=== PATIENT | male | born 1965 | race Caucasian/White ===

== ENCOUNTER → 2019-02-16 | Day surgery (SDC) | payer BC ==
[2019-02-11 13:05] VITALS: BMI 24.0
[~2019-02-16] MED LIST: LACTATED RINGERS 1,000 ML IV ONE; LACTATED RINGERS 1,000 ML IV SCH; LIDOCAINE 1% 20 ML VIAL (10MG/ML) FOR IV START INTRADERMA ONE; LIDOCAINE 1% 20 ML VIAL (10MG/ML) FOR IV START INTRADERMA PRN; MIDAZOLAM 2 MG/2 ML VIAL ONE; PROPOFOL 10 MG/ML 20 ML VIAL IV ONE
[2019-02-16 09:13] VITALS: TEMP 97.8
--- NOTE | 2019-02-16 09:48 | P.GSHP ---
History of Present Illness H&P Date: 02/16/19 Chief Complaint: GI bleed This a 54-year-old male referred from Dr. Clifford. Patient with rectal bleeding. He presents today for colonoscopy. Past Medical History Past Medical History: Cancer, Hyperlipidemia, Hypertension, Rheumatoid Arthritis (RA) History of Any Multi-Drug Resistant Organisms: None Reported Past Surgical History: Joint Replacement Additional Past Surgical History / Comment(s): TOTAL RIGHT KNEE, RIGHT ARTHROTOMY , RIGHT KNEE ARTHROSCOPIC , LEFT KNEE ARTHROSCOPIC,DEVIATED SEPUM REPAIR Past Anesthesia/Blood Transfusion Reactions: No Reported Reaction Smoking Status: Former smoker - Past Family History Mother Family Medical History: Cancer Additional Family Medical History / Comment(s): BREAST CANCER, Medications and Allergies Home Medications Medication Instructions Recorded Confirmed Type Aspirin [Adult Low Dose Aspirin EC] 81 mg PO DAILY 02/10/19 02/11/19 History Cyanocobalamin (Vitamin B-12) 2,000 mcg PO DAILY 02/10/19 02/10/19 History [Vitamin B-12] Etanercept [Enbrel] 50 mg SQ Q7DAYS 02/10/19 02/10/19 History Fenofibrate Nanocrystallized 145 mg PO DAILY 02/10/19 02/10/19 History [Fenofibrate] Folic Acid 1 mg PO DAILY 02/10/19 02/10/19 History Hydrocodone/Acetaminophen 1 tab PO QID PRN 02/10/19 02/10/19 History [Hydrocodone-Acetamin 5-300 mg] Lisinopril [Zestril] 10 mg PO DAILY 02/10/19 02/10/19 History Methotrexate/Pf [Rasuvo 20 mg/0.4 20 mg SQ TU 02/10/19 02/11/19 History ml Autoinj] Multivit-Min/Folic/Vit K/Lycop 1 each PO DAILY 02/10/19 02/10/19 History [Men's Multivitamin Tablet] Pyridoxine HCl (Vitamin B6) 100 mg PO DAILY 02/10/19 02/10/19 History [Vitamin B-6] amLODIPine BESYLATE [Norvasc] 5 mg PO DAILY 02/10/19 02/10/19 History Allergies Allergy/AdvReac Type Severity Reaction Status Date / Time No Known Allergies Allergy Verified 02/10/19 13:07 Surgical - Exam Vital Signs Temp Pulse Resp BP Pulse Ox 97.8 F 81 18 140/88 97 09/23/19 09:12 02/16/19 09:12 02/16/19 09:12 02/16/19 09:12 02/16/19 09:12 - General well developed, well nourished, no distress - Eyes PERRL - ENT normal pinna - Neck no masses - Respiratory normal expansion - Cardiovascular Rhythm: regular - Abdomen Abdomen: soft, non tender Assessment and Plan Assessment: GI bleed. We'll perform colonoscopy.
--- NOTE | 2019-02-16 10:00 | P.OP ---
Date of Procedure: 02/16/19 Preoperative Diagnosis: GI bleed Postoperative Diagnosis: External hemorrhoids Procedure(s) Performed: Colonoscopy Anesthesia: MAC Surgeon: Kip Gambino Pathology: none sent Condition: stable Disposition: PACU Description of Procedure: The patient's placed on the endoscopy table in the lateral position. He received IV sedation. Digital rectal exam was performed which revealed a few internal hemorrhoids. The flexible colonoscope was then placed patient anus and passed throughout the entire colon. The ileocecal valve was visualized. The cecum, ascending and transverse colon appeared normal. The descending and sigmoid colon there was a few scattered diverticula. Scope was then brought back the rectum this appeared normal. Scope was withdrawn for patient. There is no evidence of any GI bleed. It is presumed the patient may of blood from hemorrhoids.
[2019-02-16 10:27] VITALS: BP 127/84; PULSE 78; RESP 18
--- NOTE | 2019-02-18 14:43 | CDI ---
Date: 02.18.19 CDS/Attending Urologist Name: Julia Wise Phone: If any questions, call Carol Camara Finance Mgr at [phone] Patient Name: Sushil Chicas Admit Date: 02.16.19 Discharge Date: 02.16.19 ATTENTION: The [facility] Coding Staff appreciate your assistance in clarifying documentation. Please respond to the clarification below the line at the bottom and electronically sign. The [facility] Coding staff will review the response and follow-up if needed. Please note: Queries are made part of the Legal Health Record. If you have any questions, please contact the Finance Mgr. Dear , Postoperative diagnosis states External hemorrhoids on OP report but all the body of the report states is internal hemorrhoids. Please specify where the hemorrhoids are located. external hemorrhoids internal hemorrhoids other hemorrhoids, please specify. Thank you for your kind consideration. Operative note addendum made MTDD
== END ==
LOC: ORWHC2ENDO 08:32
PROVIDERS: ATTEND Surgery
DX: K64.8 Other hemorrhoids (principal); K57.30 Diverticulosis of large intestine without perforation or abscess without bleeding; E78.5 Hyperlipidemia, unspecified; I10 Essential (primary) hypertension; M06.9 Rheumatoid arthritis, unspecified; Z85.9 Personal history of malignant neoplasm, unspecified; Z96.651 Presence of right artificial knee joint; Z87.891 Personal history of nicotine dependence; Z79.82 Long term (current) use of aspirin; Z79.899 Other long term (current) drug therapy; Z80.3 Family history of malignant neoplasm of breast
CPT/HCPCS: 45378; J2250; J2704

== ENCOUNTER → 2020-10-11 | Outpatient (CLI) | payer BC ==
--- NOTE | 2020-10-11 16:17 | US ---
EXAMINATION TYPE: US kidneys/renal and bladder DATE OF EXAM: 10/11/2020 COMPARISON: NONE CLINICAL HISTORY: R31.9 Hematuria. Hematuria EXAM MEASUREMENTS: Right Kidney: 13.2 x 6.4 x 5.2 cm Left Kidney: 12.2 x 6.0 x 5.4 cm Right Kidney: Anechoic area upper pole 2.1 x 2.0 x 1.9 cm. This is most suggestive of a renal cyst. No hydronephrosis or shadowing renal calculi. Left Kidney: Anechoic area lower pole .9 x .8 x 1.2 cm. This is most suggestive of a renal cyst. No hydronephrosis or shadowing renal calculi. Bladder: wnl Bilateral Jets seen: Yes There is no evidence for hydronephrosis at this point in time. No nephrolithiasis is seen. The urina ry bladder is anechoic. Bilateral ureteral jets are seen. IMPRESSION: 1. Bilateral renal cysts. 2. No hydronephrosis or shadowing renal calculi.
== END | disposition home or self-care (01) ==
LOC: RADUSWWP 12:38
PROVIDERS: ATTEND Internal Medicine
DX: N28.1 Cyst of kidney, acquired (principal)
CPT/HCPCS: 76770

== ENCOUNTER 2021-12-10 10:40 | Emergency (ER) | payer BC ==
[2021-12-10 10:58] VITALS: BP 147/97; PULSE 88; RESP 18; TEMP 98.1
--- NOTE | 2021-12-10 11:32 | XR ---
EXAMINATION TYPE: XR KUB DATE OF EXAM: 12/10/2021 COMPARISON: NONE HISTORY: Pain TECHNIQUE: Single supine KUB image of the abdomen is obtained FINDINGS: Small bowel demonstrates no evidence for dilatation or air fluid levels. Gas and fecal material is seen in non-distended colon. No convincing evidence for pneumoperitoneum. No unusual calcifications. The lung bases are clear. The osseous structures are intact. IMPRESSION: 1. Overall nonobstructive bowel gas pattern.
[2021-12-10] MEDS ORDERED: ONDANSETRON 4 MG/2 ML VIAL IVP STA (12:03)
[2021-12-10] MEDS ORDERED: SODIUM CHLORIDE 0.9% 2,000 ML IV STA (12:03)
[2021-12-10] MEDS ORDERED: MORPHINE SULFATE 4 MG/ML SYRINGE IV STA (12:03)
--- NOTE | 2021-12-10 12:27 | CT ---
EXAMINATION TYPE: CT abdomen pelvis wo con DATE OF EXAM: 12/10/2021 COMPARISON: None HISTORY: Rt flank pain CT DLP: 1496.4 mGycm Examination of the solid and hollow viscera is limited given the lack of contrast. FINDINGS: LUNG BASES: No evidence for nodule. No evidence for infiltrate. LIVER/GB: The gallbladder is unremarkable. No space-occupying hepatic lesion. PANCREAS: No pancreatic mass identified. No inflammatory process seen. SPLEEN: No evidence for splenomegaly. No intrasplenic lesions seen. ADRENALS: No adrenal nodules identified. No evidence for thickening. KIDNEYS: No solid evidence for renal mass. Renal cyst right kidney. There is a 2.5 mm calculus residi ng within the dependent portion of the urinary bladder image 135 of 183 which may reflect a recently passed calculus with minimal to mild residual hydronephrosis on the right. BOWEL: Appendix has a normal appearance. No evidence of bowel obstruction. No inflammatory process. Lymph nodes: No evidence for adenopathy greater than 1 cm. Abdominal aorta: Atheromatous changes seen. No evidence for aneurysm. Genital organs: No significant abnormality. Other: Degenerative changes lumbar spine. IMPRESSION: 2.5 mm calculus residing within the dependent portion of the urinary bladder image 135 of 183 which m ay reflect a recently passed calculus with minimal to mild residual hydronephrosis on the right.
[2021-12-10 12:33] LABS: Basophils # (A) 0.1 k/uL (0-0.2); Basophils % (A) 0 %; Eosinophils # (A) 0.1 k/uL (0-0.7); Eosinophils % (A) 1 %; HCT 49.1 % (39.0-53.0); HGB 16.4 gm/dL (13.0-17.5); Lymphocytes # (A) 1.1 k/uL (1.0-4.8); Lymphocytes % (A) 9 %; MCH 31.4 pg (25.0-35.0); MCHC 33.4 g/dL (31.0-37.0); Mean Platelet Volume 7.4; Monocytes # (A) 0.4 k/uL (0-1.0); Monocytes % (A) 3 %; Neutrophils % (A) 86 %; Platelet Count 327 k/uL (150-450); RBC 5.22 m/uL (4.30-5.90); RDW 12.8 % (11.5-15.5); WBC 12.7 k/uL (3.8-10.6)
[2021-12-10 12:36] LABS: Appearance,Urine Clear (Clear); Bilirubin,Urine Negative (Negative); Blood,Urine Large (Negative); Color,Urine Yellow; Glucose,Urine (UA) Negative (Negative); Ketones,Urine Negative (Negative); Leukocyte Esterase,Urine Trace (Negative); Mucus,Urine Rare /hpf; Nitrite,Urine Negative (Negative); Protein,Urine Trace (Negative); RBC,Urine >182 /hpf (0-5); Specific Gravity,Urine 1.011 (1.001-1.035); Urobilinogen,Urine <2.0 mg/dL (<2.0); WBC,Urine 3 /hpf (0-5)
[2021-12-10 12:40] LABS: ALT 40 U/L (4-49); AST 33 U/L (17-59); African American GFR (CKD) >90 (>60 ml/min/1.73 sqM); Albumin 4.6 g/dL (3.5-5.0); Alkaline Phosphatase 59 U/L (38-126); Anion Gap 9 mmol/L; Blood Urea Nitrogen 20 mg/dL (9-20); Carbon Dioxide 26 mmol/L (22-30); Chloride 105 mmol/L (98-107); Glucose 106 mg/dL (74-99); Lipase 126 U/L (23-300); Non-African American GFR(CKD) >90 (>60 ml/min/1.73 sqM); Potassium 4.1 mmol/L (3.5-5.1); Sodium 140 mmol/L (137-145); Total Bilirubin 0.4 mg/dL (0.2-1.3); Total Protein 7.7 g/dL (6.3-8.2)
--- NOTE | 2021-12-10 13:08 | ED ---
Abdominal Pain HPI - General Chief Complaint: Abdominal Pain Stated Complaint: Abd Pain Source: patient Mode of arrival: wheelchair Limitations: no limitations - History of Present Illness Initial Comments: Patient is a 56-year-old male who presents to the emergency department with a chief complaint of right sided pain. Patient states the pain started this morning. Onset was abrupt and severe. Radiation to the right back. Patient had associated nausea and vomiting. Patient states his pain has waxed and waned today. Denies fever, chills, burning with urination, and increased urinary frequency. Does admit to some increased urgency and difficulty starting stream. Denies history of kidney stone and infection. - Related Data Home Medications Medication Instructions Recorded Confirmed Aspirin [Adult Low Dose Aspirin EC] 81 mg PO DAILY 02/10/19 02/11/19 Cyanocobalamin (Vitamin B-12) 2,000 mcg PO DAILY 02/10/19 02/10/19 [Vitamin B-12] Etanercept [Enbrel] 50 mg SQ Q7DAYS 02/10/19 02/10/19 Fenofibrate Nanocrystallized 145 mg PO DAILY 02/10/19 02/10/19 [Fenofibrate] Folic Acid 1 mg PO DAILY 02/10/19 02/10/19 Hydrocodone/Acetaminophen 1 tab PO QID PRN 02/10/19 02/10/19 [Hydrocodone-Acetamin 5-300 mg] Methotrexate/Pf [Rasuvo 20 mg/0.4 20 mg SQ TU 02/10/19 02/11/19 ml Autoinj] Multivit-Min/Folic/Vit K/Lycop 1 each PO DAILY 02/10/19 02/10/19 [Men's Multivitamin Tablet] Pyridoxine HCl (Vitamin B6) 100 mg PO DAILY 02/10/19 02/10/19 [Vitamin B-6] amLODIPine BESYLATE [Norvasc] 5 mg PO DAILY 02/10/19 02/10/19 lisinopriL [Zestril] 10 mg PO DAILY 02/10/19 02/10/19 Previous Rx's Medication Instructions Recorded Ondansetron Odt [Zofran Odt] 4 mg PO Q8HR PRN #10 tab 12/10/21 Tamsulosin [Flomax] 0.4 mg PO DAILY #14 cap 12/10/21 Allergies Allergy/AdvReac Type Severity Reaction Status Date / Time No Known Allergies Allergy Verified 12/10/21 10:58 Review of Systems ROS Statement: Those systems with pertinent positive or pertinent negative responses have been documented in the HPI. ROS Other: All systems not noted in ROS Statement are negative. Past Medical History Past Medical History: Cancer, Hyperlipidemia, Hypertension, Rheumatoid Arthritis (RA) History of Any Multi-Drug Resistant Organisms: None Reported Past Surgical History: Joint Replacement Additional Past Surgical History / Comment(s): TOTAL RIGHT KNEE, RIGHT ARTH ROTOMY , RIGHT KNEE ARTHROSCOPIC , LEFT KNEE ARTHROSCOPIC,DEVIATED SEPUM REPAIR Past Anesthesia/Blood Transfusion Reactions: No Reported Reaction Past Psychological History: No Psychological Hx Reported Past Alcohol Use History: Rare Past Drug Use History: Marijuana - Past Family History Mother Family Medical History: Cancer Additional Family Medical History / Comment(s): BREAST CANCER, General Exam Limitations: no limitations General appearance: alert, in no apparent distress Eye exam: Present: normal appearance, PERRL, EOMI. Absent: scleral icterus, conjunctival injection, periorbital swelling Respiratory exam: Present: normal lung sounds bilaterally. Absent: respiratory distress, wheezes, rales, rhonchi, stridor Cardiovascular Exam: Present: regular rate, normal rhythm, normal heart sounds. Absent: systolic murmur, diastolic murmur, rubs, gallop, clicks GI/Abdominal exam: Present: soft, normal bowel sounds. Absent: distended, tenderness, guarding, rebound, rigid Back exam: Present: normal inspection, full ROM. Absent: tenderness, CVA tenderness (R), CVA tenderness (L) Neurological exam: Present: alert, oriented X3, CN II-XII intact Psychiatric exam: Present: normal affect, normal mood Skin exam: Present: warm, dry, intact, normal color. Absent: rash Course Vital Signs 12/10/21 10:54 Temperature 98.1 F Pulse Rate 88 Respiratory 18 Rate Blood Pressure 147/97 O2 Sat by Pulse 97 Oximetry Medical Decision Making - Medical Decision Making This is a 56-year-old male who presents with right flank pain, nausea, vomiting. Thorough history and examination were performed. Patient is well-appearing. Afebrile. There is no right CVA tenderness or right lumbar tenderness. With suspicion for kidney stone I will obtain laboratory studies as well as CT of the abdomen and pelvis without contrast. Laboratory studies are significant for mild leukocytosis at 12.7. Kidney function is normal. Urinalysis reveals large blood without evidence of infection. CT of the abdomen and pelvis shows a 2.5 mm calculus residing with independent portion of the urinary bladder which may reflect a recently passed calculus with minimal to mild residual hydronephrosis on the right. Results discussed with patient and his . This is a small kidney stone with good kidney function and minimal hydronephrosis. Patient can pass the stone at home. He will be discharged with Flomax and Zofran. Patient given a strainer to catch the stone which she will bring to urology follow-up. Return parameters discussed. Patient and his verbalize understanding and are agreeable to this plan. Dr. Joy is my attending. - Lab Data Result diagrams: 12/10/21 12:29 12/10/21 12:29 Lab Results 12/10/21 12/10/21 12/10/21 Range/Units 12:29 12:29 12:29 WBC 12.7 H (3.8-10.6) k/uL RBC 5.22 (4.30-5.90) m/uL Hgb 16.4 (13.0-17.5) gm/dL Hct 49.1 (39.0-53.0) % MCV 94.0 (80.0-100.0) fL MCH 31.4 (25.0-35.0) pg MCHC 33.4 (31.0-37.0) g/dL RDW 12.8 (11.5-15.5) % Plt Count 327 (150-450) k/uL MPV 7.4 Neutrophils % 86 % Lymphocytes % 9 % Monocytes % 3 % Eosinophils % 1 % Basophils % 0 % Neutrophils # 11.0 H (1.3-7.7) k/uL Lymphocytes # 1.1 (1.0-4.8) k/uL Monocytes # 0.4 (0-1.0) k/uL Eosinophils # 0.1 (0-0.7) k/uL Basophils # 0.1 (0-0.2) k/uL Sodium 140 (137-145) mmol/L Potassium 4.1 (3.5-5.1) mmol/L Chloride 105 (98-107) mmol/L Carbon Dioxide 26 (22-30) mmol/L Anion Gap 9 mmol/L BUN 20 (9-20) mg/dL Creatinine 0.63 L (0.66-1.25) mg/dL Est GFR (CKD-EPI)AfAm >90 (>60 ml/min/1.73 sqM) Est GFR (CKD-EPI)NonAf >90 (>60 ml/min/1.73 sqM) Glucose 106 H (74-99) mg/dL Calcium 10.0 (8.4-10.2) mg/dL Total Bilirubin 0.4 (0.2-1.3) mg/dL AST 33 (17-59) U/L ALT 40 (4-49) U/L Alkaline Phosphatase 59 (38-126) U/L Total Protein 7.7 (6.3-8.2) g/dL Albumin 4.6 (3.5-5.0) g/dL Lipase 126 (23-300) U/L Urine Color Yellow Urine Appearance Clear (Clear) Urine pH 5.0 (5.0-8.0) Ur Specific Melvin 1.011 (1.001-1.035) Urine Protein Trace H (Negative) Urine Glucose (UA) Negative (Negative) Urine Ketones Negative (Negative) Urine Blood Large H (Negative) Urine Nitrite Negative (Negative) Urine Bilirubin Negative (Negative) Urine Urobilinogen <2.0 (<2.0) mg/dL Ur Leukocyte Esterase Trace H (Negative) Urine RBC >182 H (0-5) /hpf Urine WBC 3 (0-5) /hpf Urine Mucus Rare H (None) /hpf Disposition Clinical Impression: Kidney stone on right side Disposition: HOME SELF-CARE Condition: Good Instructions (If sedation given, give patient instructions): Kidney Stones ( ED), How to Strain Your Urine (ED) Additional Instructions: Please take medication as directed. Take your home prescription of Vicodin for pain. Strain urine in effort to catch stone so it can be tested at urology clinic. Follow-up with urologist in 1-2 days. Return to the emergency department if you experience new, concerning, or worsening symptoms. Prescriptions: Tamsulosin [Flomax] 0.4 mg PO DAILY #14 cap Ondansetron Odt [Zofran Odt] 4 mg PO Q8HR PRN #10 tab PRN Reason: Nausea Is patient prescribed a controlled substance at d/c from ED?: No Referrals: Angy Clifford MD [Primary Care Provider] - 1-2 days Oren Mccarthy MD [STAFF PHYSICIAN] - 1-2 days Time of Disposition: 13:08
== END 2021-12-10 13:24 | disposition home or self-care (01) ==
LOC: EC 10:40
DX: N20.0 Calculus of kidney (principal); E78.5 Hyperlipidemia, unspecified; I10 Essential (primary) hypertension
CPT/HCPCS: 99284; 96374; 96361; 36415; 80053; 83690; 85025; 81001; 74018; 74176; 96375; J2270; J2405

== ENCOUNTER 2022-03-26 12:44 | Emergency (ER) | payer BC ==
[2022-03-26] MEDS ORDERED: LIDOCAINE 5% PATCH TOPICAL STA (15:24)
[2022-03-26] MEDS ORDERED: KETOROLAC 15 MG/ML 1 ML VIAL IM STA (15:25)
--- NOTE | 2022-03-26 16:10 | ED ---
General Adult HPI - General Chief complaint: Back Pain/Injury Stated complaint: fall, back injury Time Seen by Provider: 03/26/22 15:11 Source: patient, RN notes reviewed, old records reviewed Mode of arrival: ambulatory Limitations: no limitations - History of Present Illness Initial comments: Patient is a 57-year-old male with past medical history remarkable for chronic pain, hypertension, rheumatoid arthritis who presents emergency Department after [place] injuring his back on Saturday. Is currently Saturday morning. Patient states he fell out of his shed approximately 6 inches and landed on the renal areas. Has a small abrasion located to the posterior left back. Also has diffuse pain over the ribs on his back. Is concerned he may have a rib injury. Worse with deep inspiration. Denies cough. Denies fevers or chills. Denies abdominal pain, nausea, vomiting. Denies any midline back pain. Is not on blood thinners. Did not lose conscious. Presents for further evaluation at this time. - Related Data Home Medications Medication Instructions Recorded Confirmed Aspirin [Adult Low Dose Aspirin EC] 81 mg PO DAILY 02/10/19 02/11/19 Cyanocobalamin (Vitamin B-12) 2,000 mcg PO DAILY 02/10/19 02/10/19 [Vitamin B-12] Etanercept [Enbrel] 50 mg SQ Q7DAYS 02/10/19 02/10/19 Fenofibrate Nanocrystallized 145 mg PO DAILY 02/10/19 02/10/19 [Fenofibrate] Folic Acid 1 mg PO DAILY 02/10/19 02/10/19 Hydrocodone/Acetaminophen 1 tab PO QID PRN 02/10/19 02/10/19 [Hydrocodone-Acetamin 5-300 mg] Methotrexate/Pf [Rasuvo 20 mg/0.4 20 mg SQ TU 02/10/19 02/11/19 ml Autoinj] Multivit-Min/Folic/Vit K/Lycop 1 each PO DAILY 02/10/19 02/10/19 [Men's Multivitamin Tablet] Pyridoxine HCl (Vitamin B6) 100 mg PO DAILY 02/10/19 02/10/19 [Vitamin B-6] amLODIPine BESYLATE [Norvasc] 5 mg PO DAILY 02/10/19 02/10/19 lisinopriL [Zestril] 10 mg PO DAILY 02/10/19 02/10/19 Previous Rx's Medication Instructions Recorded Ondansetron Odt [Zofran Odt] 4 mg PO Q8HR PRN #10 tab 12/10/21 Tamsulosin [Flomax] 0.4 mg PO DAILY #14 cap 12/10/21 Lidocaine 5% Patch [Lidoderm 5% 1 patch TOPICAL DAILY PRN 7 Days 03/26/22 Patch] #7 patch methocarbamoL [Robaxin-750] 750 mg PO BID PRN #14 tab 03/26/22 Allergies Allergy/AdvReac Type Severity Reaction Status Date / Time No Known Allergies Allergy Verified 03/26/22 12:58 Review of Systems ROS Statement: Those systems with pertinent positive or pertinent negative responses have been documented in the HPI. Review of Systems: CONST: Denies fever EYES: Denies blurry vision ENT: Denies nasal congestion C/V: Denies Chest pain RESP: Denies shortness of breath GI: Denies abdominal pain : Denies dysuria SKIN: Endorses abrasion MSK: Endorses back pain NEURO: Denies headache ROS Other: All systems not noted in ROS Statement are negative. Past Medical History Past Medical History: Cancer, Hyperlipidemia, Hypertension, Rheumatoid Arthritis (RA) History of Any Multi-Drug Resistant Organisms: None Reported Past Surgical History: Joint Replacement Additional Past Surgical History / Comment(s): TOTAL RIGHT KNEE, RIGHT ARTHROTOMY , RIGHT KNEE ARTHROSCOPIC , LEFT KNEE ARTHROSCOPIC,DEVIATED SEPUM REPAIR Past Anesthesia/Blood Transfusion Reactions: No Reported Reaction Past Psychological History: No Psychological Hx Reported Smoking Status: Never smoker Past Alcohol Use History: Rare Past Drug Use History: Marijuana - Past Family History Mother Family Medical History: Cancer Additional Family Medical History / Comment(s): BREAST CANCER, General Exam - General Exam Comments Initial Comments: General: Appears in no acute distress. HEAD: Normal with no signs of head trauma. EYES: EOMI ENT: Hearing grossly intact, normal oropharynx. RESPIRATORY: Clear breath sounds bilaterally. No wheezes, rales, or rhonchi. No hypoxia. No respiratory distress. C/V: Regular rate and rhythm. S1 and S2 auscultated. ABD: Abdomen is soft, nondistended. Nontender. EXT: Posterior left rib pain and trapezius muscle pain. No obvious step-offs appreciated. No midline cervical, thoracic, lumbar spine tenderness to palpation. SKIN: Small abrasion located over the posterior left back. Approximately the size of a dime. Does not appear to be penetrating. NEURO: Alert and Oriented 4. Limitations: no limitations Course Vital Signs 03/26/22 12:56 Temperature 98 F Pulse Rate 101 H Respiratory 20 Rate Blood Pressure 142/97 O2 Sat by Pulse 98 Oximetry Medical Decision Making - Medical Decision Making Based on the patient's presentation and physical exam, and concern for rib pain/rib injury or back injury. His no midline spine tenderness. Is up-to-date on tetanus. Has a small abrasion. We will obtain left rib x-ray with chest tube ribs and lung. He was in agreement this plan. Vital signs within acceptable limits. No respiratory distress. Disposition Clinical Impression: Rib contusion, Abrasion Disposition: HOME SELF-CARE Condition: Good Instructions (If sedation given, give patient instructions): How to Use an Incentive Spirometer (ED), Rib Contusion (ED) Prescriptions: Lidocaine 5% Patch [Lidoderm 5% Patch] 1 patch TOPICAL DAILY PRN 7 Days #7 patch PRN Reason: Pain methocarbamoL [Robaxin-750] 750 mg PO BID PRN #14 tab PRN Reason: Pain Is patient prescribed a controlled substance at d/c from ED?: No Referrals: Angy Clifford MD [Primary Care Provider] - 1-2 days Time of Disposition: 16:20
--- NOTE | 2022-03-26 16:25 | XR ---
EXAMINATION TYPE: PA chest and left rib series, 5 views DATE OF EXAM: 03/26/2022 Comparison: None Clinical History: 57-year-old male rib pain Findings: Heart normal size. Aorta and pulmonary vasculature are within normal limits. No consolidation, pneumo thorax, or pleural effusion. Mild to moderate degenerative change left AC joint. No displaced left rib fracture seen. Impression: No acute cardiopulmonary process. No displaced left fracture seen.
[2022-03-26 16:45] VITALS: BP 163/99; PULSE 89; RESP 18; TEMP 97.2
== END 2022-03-26 16:45 | disposition home or self-care (01) ==
LOC: EC 12:44
DX: S20.20XA Contusion of thorax, unspecified, initial encounter (principal); E78.5 Hyperlipidemia, unspecified; I10 Essential (primary) hypertension; Z79.899 Other long term (current) drug therapy; Z79.82 Long term (current) use of aspirin; W17.89XA Other fall from one level to another, initial encounter; Y92.89 Other specified places as the place of occurrence of the external cause
CPT/HCPCS: 99283

== ENCOUNTER → 2024-06-18 | Outpatient (CLI) | payer BC ==
--- NOTE | 2024-06-18 16:44 | CA ---
Transthoracic Echo Report Name: Sushil Chicas Age: 59 Gender: M : 1965 Exam Date: 06/18/2024 14:15 Exam Location: [facility] Ht (in): 69 Wt (lb): 261 Ordering Physician: Izaiah Cronin DO Attending/Referring Phys: Willis Real FNC Hotbed Operator Judy Barth RDCS Procedure CPT: Indications: Z01.818 ENCTR FOR PRE PROCEDURAL EXAM Cardiac Hx: Technical Quality: Fair Contrast 1: Total Dose (mL): Contrast 2: Total Dose (mL): MEASUREMENTS (Male / Female) Normal Values 2D ECHO LV Diastolic Diameter PLAX 5.1 cm 4.2 - 5.9 / 3.9 - 5.3 cm LV Systolic Diameter PLAX 3.6 cm IVS Diastolic Thickness 1.3 cm 0.6 - 1.0 / 0.6 - 0.9 cm LVPW Diastolic Thickness 1.2 cm 0.6 - 1.0 / 0.6 - 0.9 cm LV Relative Wall Thickness 0.5 RV Internal Dim ED PLAX 3.6 cm LA Systolic Diameter LX 4.2 cm 3.0 - 4.0 / 2.7 - 3.8 cm LV Diastolic Volume MOD BP 110.9 cm??? 67 - 155 / 56 - 104 cm??? LV Systolic Volume MOD BP 63.0 cm??? 22 - 58 / 19 - 49 cm??? LV Ejection Fraction MOD BP 43.2 % >= 55 % LV Cardiac Index MOD BP 1642.4 cm???/min???m??? LV Diastolic Volume MOD 4C 119.4 cm??? LV Systolic Volume MOD 4C 57.4 cm??? LV Ejection Fraction MOD 4C 51.9 % LV Cardiac Index MOD 4C 2123.3 cm???/min???m??? LV Diastolic Length 4C 8.9 cm LV Systolic Length 4C 7.9 cm LV Diastolic Volume MOD 2C 100.8 cm??? LV Systolic Volume MOD 2C 66.5 cm??? LV Ejection Fraction MOD 2C 34.0 % LV Cardiac Index MOD 2C 1175.5 cm???/min???m??? LV Diastolic Length 2C 9.1 cm LV Systolic Length 2C 7.3 cm LA Volume 48.2 cm??? 18 - 58 / 22 - 52 cm??? LA Volume Index 19.7 cm???/m??? 16 - 28 cm???/m??? M-MODE Aortic Root Diameter MM 4.0 cm DOPPLER AV Peak Velocity 141.6 cm/s AV Peak Gradient 8.0 mmHg AI Peak Velocity 280.9 cm/s AI Peak Gradient 31.6 mmHg AI Pressure Half Time 1331.8 ms MV Area PHT 2.7 cm??? Mitral E Point Velocity 70.2 cm/s Mitral A Point Velocity 98.3 cm/s Mitral E to A Ratio 0.7 MV Deceleration Time 281.0 ms TR Peak Velocity 209.7 cm/s TR Peak Gradient 17.6 mmHg Right Ventricular Systolic Press 22.6 mmHg FINDINGS Left Ventricle Left ventricular ejection fraction is estimated at 55 %. Left ventricular cavity size normal. Mild concentric left ventricular hypertrophy. Normal left ventricular wall motion. Right Ventricle Mild right ventricular dilatation. Right ventricular systolic pressure within normal limits. Right Atrium Normal right atrial size. No right atrial thrombus or mass seen. Left Atrium Normal left atrial size. No left atrial thrombus or mass present. Mitral Valve Structurally normal mitral valve. No mitral stenosis, regurgitation or prolapse. Aortic Valve Trileaflet aortic valve. Trace to mild aortic regurgitation. No aortic stenosis. Tricuspid Valve Structurally normal tricuspid valve. Trace to mild tricuspid regurgitation. Pulmonic Valve Structurally normal pulmonic valve. Trace pulmonic regurgitation. Pericardium No pericardial effusion. Aorta Moderate aortic dilatation at the level of the sinuses of valsalva 40 mm CONCLUSIONS Left ventricular ejection fraction 55% Mildly increased left ventricular wall thickness RVSP 22 No mitral regurgitation Trace to mild tricuspid regurgitation Previewed by: Dr. Deondre Gregorio DO (Electronically Signed) Final Date: 18 June 2024 16:43
== END | disposition home or self-care (01) ==
LOC: RADECHMAIN 14:13
PROVIDERS: ATTEND Family Medicine
DX: Z01.818 Encounter for other preprocedural examination (principal); I36.1 Nonrheumatic tricuspid (valve) insufficiency
CPT/HCPCS: 93306

== ENCOUNTER → 2024-07-24 | Outpatient (CLI) | payer BC ==
--- NOTE | 2024-07-24 16:43 | US ---
EXAMINATION TYPE: US venous doppler duplex LE LT DATE OF EXAM: 07/24/2024 4:09 PM COMPARISON: NONE CLINICAL INDICATION: Male, 59 years old with history of LEFT LEG R22.42 LOCALIZED SWELLING, MASS AND LUMP; recent total knee 06/30/2024, swelling and knee pain TECHNIQUE: The lower extremity deep venous system is examined utilizing real time linear array sonog lynn with graded compression, color doppler sonography, and spectral doppler. SIDE PERFORMED: Left FINDINGS: VESSELS IMAGED: Common Femoral Vein Deep Femoral Vein Greater Saphenous Vein * Femoral Vein Popliteal Vein Small Saphenous Vein * Proximal Calf Veins (* superficial vessels) limited views due to pain and habitus Left Leg: Negative for DVT, Color Doppler imaging shows patency of the vessels. Spectral waveforms a re within normal limits. There is a complex lesion with peripheral color flow within the left popliteal fossa measuring 4.9 x 1.4 cm. There is some internal color flow suggested. IMPRESSION: 1. No evidence of deep vein thrombosis of the left lower extremity. 2. Complex lesion within the left popliteal fossa with some internal color flow suggested. Etiologies include complex Zuniga's cyst versus other. Recommend further evaluation with MRI. [facility], , 07/24/2024 4:41 PM
== END | disposition home or self-care (01) ==
LOC: RADUSWWP 14:58
PROVIDERS: ATTEND Family Medicine
DX: R22.42 Localized swelling, mass and lump, left lower limb (principal)

== ENCOUNTER 2024-09-02 08:29 | Day surgery (SDC) | payer BC ==
[2024-08-31 15:48] VITALS: BMI 39.9
--- NOTE | 2024-09-02 07:58 | P.GSHP ---
History of Present Illness H&P Date: 09/02/24 CHIEF COMPLAINT: GERD and colon screen HISTORY OF PRESENT ILLNESS: The patient is a 59-year-old male who presents with gastroesophageal reflux disease and need for colon screen. Upper and lower endoscopy were offered for further evaluation and management. PAST MEDICAL HISTORY: Please see list. PAST SURGICAL HISTORY: Please see list. MEDICATIONS: Please see list. ALLERGIES: Please see list. SOCIAL HISTORY: No illicit drug use FAMILY HISTORY: No reports of Crohn disease or ulcerative colitis. REVIEW OF ORGAN SYSTEMS: CONSTITUTIONAL: No reports of fevers or chills. GI: Denies any blood in stools or constipation. PHYSICAL EXAM: VITAL SIGNS: Stable GENERAL: Well-developed pleasant in no acute distress. HEENT: No scleral icterus. Extraocular movements grossly intact. Moist buccal mucosa. NECK: Supple without lymphadenopathy. CHEST: Unlabored respirations. Equal bilateral excursions. CARDIOVASCULAR: Regular rate and rhythm. Distal 2+ pulses. ABDOMEN: Soft, nondistended. MUSCULOSKELETAL: No clubbing, cyanosis, or edema. ASSESSMENT: 1. Gastroesophageal reflux disease 2. Colon screen. PLAN: 1. Recommend proceeding with an upper and lower endoscopy Past Medical History Past Medical History: Hyperlipidemia, Hypertension, Osteoarthritis (OA), Rheumatoid Arthritis (RA) History of Any Multi-Drug Resistant Organisms: None Reported Past Surgical History: Joint Replacement Additional Past Surgical History / Comment(s): TOTAL RIGHT KNEE, RIGHT ARTHROTOMY , RIGHT KNEE ARTHROSCOPIC , LEFT KNEE ARTHROSCOPIC, DEVIATED SEPUM REPAIR, L total knee. Past Anesthesia/Blood Transfusion Reactions: No Reported Reaction Smoking Status: Former smoker, Never smoker - Past Family History Mother Family Medical History: Cancer Additional Family Medical History / Comment(s): BREAST CANCER, Medications and Allergies Home Medications Medication Instructions Recorded Confirmed Type Cyanocobalamin (Vitamin B-12) 2,000 mcg PO DAILY 02/10/19 08/31/24 History [Vitamin B-12] Fenofibrate Nanocrystallized 145 mg PO DAILY 02/10/19 08/31/24 History [Fenofibrate] Hydrocodone/Acetaminophen 1 tab PO QID PRN 02/10/19 08/31/24 History [Hydrocodone-Acetamin 5-300 mg] Multivit-Min/Folic/Vit K/Lycop 1 each PO DAILY 02/10/19 08/31/24 History [Men's Multivitamin Tablet] Pyridoxine HCl (Vitamin B6) 100 mg PO DAILY 02/10/19 08/31/24 History [Vitamin B-6] amLODIPine BESYLATE [Norvasc] 5 mg PO DAILY 02/10/19 08/31/24 History lisinopriL [Zestril] 10 mg PO DAILY 02/10/19 08/31/24 History Diclofenac Sodium [Voltaren 20 gm TOPICAL DAILY 08/31/24 08/31/24 History Arthritis Pain 1% Gel] Upadacitinib [Rinvoq] 15 mg PO DAILY 08/31/24 08/31/24 History sulfaSALAzine [Azulfidine] 500 mg PO BID 08/31/24 08/31/24 History Allergies Allergy/AdvReac Type Severity Reaction Status Date / Time No Known Allergies Allergy Verified 08/31/24 15:48
[~2024-09-02 08:29] MED LIST changes: -LACTATED RINGERS 1,000 ML IV ONE; -LACTATED RINGERS 1,000 ML IV SCH; +LIDOCAINE 1% (10MG/ML) FOR IV START INTRADERMA PRN; -LIDOCAINE 1% 20 ML VIAL (10MG/ML) FOR IV START INTRADERMA ONE; -LIDOCAINE 1% 20 ML VIAL (10MG/ML) FOR IV START INTRADERMA PRN; -MIDAZOLAM 2 MG/2 ML VIAL ONE; -PROPOFOL 10 MG/ML 20 ML VIAL IV ONE
[2024-09-02 08:50] VITALS: TEMP 97.2
[2024-09-02] MEDS: LACTATED RINGERS 1,000 ML IV SCH (09:00)
[2024-09-02] MEDS: IV FLUID CONTINUATION 1,000 ML IV ONE (09:01)
[2024-09-02] MEDS ORDERED: LIDOCAINE 1% INJ 10MG/ML (20 ML MDV) ONE (09:13)
[2024-09-02] MEDS ORDERED: PROPOFOL 10 MG/ML 20 ML VIAL IV ONE (09:13)
--- NOTE | 2024-09-02 09:31 | P.PCN ---
Date of Procedure: 09/02/24 Description of Procedure: PREOPERATIVE DIAGNOSIS: Gastrointestinal bleeding POSTOPERATIVE DIAGNOSIS: Acute gastric ulcer without bleeding Gastroesophageal reflux disease with erosive esophagitis OPERATION: Esophagogastroduodenoscopy with cold forceps biopsies along esophagus, antrum and duodenum SURGEON: Alexandra Marrero MD ANESTHESIA: MAC. INDICATIONS: The patient is a 59-year-old male who presents with gastrointestinal bleeding. Benefits and risks of the procedure were described. Informed consent was obtained. DESCRIPTION: The patient was brought into the endoscopy suite and laid in the left lateral decubitus position. An Olympus gastroscope was passed along the posterior oropharynx down to the distal esophagus where the squamocolumnar junction was encountered at 40 cm from the incisors. The stomach was entered and no bile reflux was found. Additional findings are listed below. Biopsies with cold forceps were obtained of the antrum. The first through third portion of the duodenum was examined. Retroflexion of the scope confirmed Hill grade 2 lower esophageal valve. The squamocolumnar junction demonstrated LA grade B erosive esophagitis. The stomach was desufflated. The patient tolerated the procedure well. FINDINGS: Squamocolumnar junction 40 cm from the incisors. Diaphragmatic hiatus at 40 cm. Hill grade 4 lower esophageal valve. LA grade B erosive esophagitis. Biopsies obtained. Biopsies obtained of the duodenum. Chronic gastritis with biopsies obtained. Acute ulcer, 3 mm at antrum, biopsy obtained RECOMMENDATIONS: Omeprazole 40 mg daily for 2 weeks
--- NOTE | 2024-09-02 09:59 | P.PCN ---
Date of Procedure: 09/02/24 Description of Procedure: PREOPERATIVE DIAGNOSIS: Positive Cologuard Colonoscopy screening POSTOPERATIVE DIAGNOSIS: Tubular adenoma transverse colon OPERATION: Colonoscopy to the ileocecal valve and appendiceal orifice, cecum Colonoscopy with hot snare polypectomy SURGEON: Alexandra Marrero MD. ANESTHESIA: MAC. INDICATIONS: The patient is an 59-year-old male who presents for his first colonoscopy screening. He has positive Cologuard test. Benefits and risks were described and informed consent was obtained. DESCRIPTION OF PROCEDURE: The patient had undergone Suprep. The patient had been brought into the operating room and laid in the left lateral decubitus position. After adequate intravenous sedation, the rectum was examined with 2% lidocaine jelly. The prostate was unremarkable. External hemorrhoids were encountered. The rectal tone was within normal limits. No lesions were palpated in the rectal vault. An Olympus colonoscope was advanced until the cecum, ileocecal valve and appendiceal orifice were clearly viewed. The prep was good. No large sigmoid diverticulosis was encountered. Colonic polyps were found and removed. No evidence of focal colitis was found. Retroflexion of the scope demonstrated grade 2 internal hemorrhoids without active bleeding or inflammation. The colon was desufflated. The patient had tolerated the procedure well. Withdrawal time was over 6 minutes. FINDINGS: Aronchick preparation quality scale 2 (1-5) Internal hemorrhoids, grade 2 External hemorrhoids, grade 2. No arteriovenous malformations. No large sigmoid diverticulosis Removal of 2 polyps: - Snare polypectomy transverse colon x 2, 5 - 8 mm tubulovillous adenoma No focal colitis. RECOMMENDATIONS: Repeat colonoscopy 3 years, 2027 Plan - Discharge Summary Discharge Rx Participant: Yes New Discharge Prescriptions: New Omeprazole [PriLOSEC] 40 mg PO DAILY #14 cap Continue Hydrocodone/Acetaminophen [Vicodin 5-300 mg] 1 tab PO QID PRN PRN Reason: Pain lisinopriL [Zestril] 10 mg PO DAILY amLODIPine BESYLATE [Norvasc] 5 mg PO DAILY Multivit-Min/Folic/Vit K/Lycop [Men's Multivitamin Tablet] 1 each PO DAILY Fenofibrate Nanocrystallized [Fenofibrate] 145 mg PO DAILY Cyanocobalamin (Vitamin B-12) [Vitamin B-12] 2,000 mcg PO DAILY Diclofenac Sodium [Voltaren Arthritis Pain 1% Gel] 20 gm TOPICAL DAILY sulfaSALAzine [Azulfidine] 500 mg PO BID Upadacitinib [Rinvoq] 15 mg PO DAILY Discharge Medication List Cyanocobalamin (Vitamin B-12) [Vitamin B-12] 2,000 mcg PO DAILY 02/10/19 [History] Fenofibrate Nanocrystallized [Fenofibrate] 145 mg PO DAILY 02/10/19 [History] Hydrocodone/Acetaminophen [Vicodin 5-300 mg] 1 tab PO QID PRN 02/10/19 [History] Multivit-Min/Folic/Vit K/Lycop [Men's Multivitamin Tablet] 1 each PO DAILY 0 02/10/19 [History] amLODIPine BESYLATE [Norvasc] 5 mg PO DAILY 02/10/19 [History] lisinopriL [Zestril] 10 mg PO DAILY 02/10/19 [History] Diclofenac Sodium [Voltaren Arthritis Pain 1% Gel] 20 gm TOPICAL DAILY 08/31/24 [History] Upadacitinib [Rinvoq] 15 mg PO DAILY 08/31/24 [History] sulfaSALAzine [Azulfidine] 500 mg PO BID 08/31/24 [History] Omeprazole [PriLOSEC] 40 mg PO DAILY #14 cap 09/02/24 [Rx] Follow up Appointment(s)/Referral(s): Alexandra Marrero MD [STAFF PHYSICIAN] - 09/22/24 1:00 pm Patient Instructions/Handouts: Colorectal Polyps (GEN), Peptic Ulcer (DC) Activity/Diet/Wound Care/Special Instructions: Repeat colonoscopy 3 years, 2027 Discharge Disposition: HOME SELF-CARE
[2024-09-02 10:17] VITALS: BP 119/88; PULSE 97; RESP 20
== END 2024-09-02 11:03 | disposition home or self-care (01) ==
LOC: ORWHC2ENDO 08:29
PROVIDERS: ATTEND Surgery Plastic and Reconstructive Surgery
DX: Z12.11 Encounter for screening for malignant neoplasm of colon (principal); K29.50 Unspecified chronic gastritis without bleeding; D12.3 Benign neoplasm of transverse colon; K64.4 Residual hemorrhoidal skin tags; K64.8 Other hemorrhoids; K25.0 Acute gastric ulcer with hemorrhage; K21.00 Gastro-esophageal reflux disease with esophagitis, without bleeding; E78.5 Hyperlipidemia, unspecified; I10 Essential (primary) hypertension; M06.9 Rheumatoid arthritis, unspecified; Z87.891 Personal history of nicotine dependence
CPT/HCPCS: 45385; 43239; J2003; J2704; 88305

== ENCOUNTER 2024-12-15 19:33 | Outpatient (CLI) | payer BC ==
--- NOTE | 2024-12-17 16:50 | P.PCN ---
Description of Procedure: POLYSOMNOGRAPHY REPORT PROCEDURE(S)/DATE(S): Polysomnography 12/15/2024 CLINICAL: Patient has been seen in the sleep center for evaluation of obstructive sleep apnea-hypopnea syndrome. Please see my consultation. Sleep study has been done for evaluation of patient breathing during the sleep. PROCEDURE: The standard montage for clinical polysomnography included the electroencephalogram, the electrooculogram, the mentalis surface electromyography and Lead II cardiography. The respiratory battery consisted of measurements of nasal/buccal air flow, pressure transducer measurements from nose, thoracic and/or abdominal effort and intercostal surface electromyography. Video monitoring has been done to check for any parasomnia events. Nocturnal oxyhemoglobin saturations were obtained by finger oximetry. Step-forrest titration with positive airway pressure was utilized to control the respiratory events, if necessary. RESULTS: During the diagnostic sleep study sleep efficiency was decreased to 62.2%. Latency to sleep onset was borderline 27.0 min. Sleep architecture showed stage NI in high range of 33.5%, Delta sleep was absent 0%, REM sleep was short only 7.0%. Respiratory channel showed 352 obstructive apneas, 39 mixed apneas, 14 central apneas, 94 hypopneas with lowest oxygen level 58%. Total apnea hypopnea index was 106.7. Heart rate was in the range between 76 and 88, average 81. EMG showed 0 periodic limb movements per hour. IMPRESSIONS: 1. Extremely severe obstructive sleep apnea hypopnea syndrome with extremely severe oxygen desaturation. 2. No significant periodic limb movements have been documented. Please see other impressions from consultation PLAN: 1. The patient will have PAP titration for correction of respiratory abnormalities during the sleep. 2. Losing weight program. 3. Sleep hygiene with regular time in bed for at least 7-1/2 hours. 4. No driving if feeling sleepiness. Thank you very much for allowing me to participate in the management of your patient. Sincerely, Trenton Florez MD, PhD, FAASM. Diplomat of [employer], Sleep Medicine Board by [employer] Literacy Teacher of [facility] [place] cc: Izaiah Cronin DO
== END 2024-12-16 05:15 | disposition home or self-care (01) ==
LOC: 3 N SLEEP 19:33
PROVIDERS: ATTEND Internal Medicine
DX: G47.33 Obstructive sleep apnea (adult) (pediatric) (principal); I10 Essential (primary) hypertension
CPT/HCPCS: 95810

== ENCOUNTER 2024-12-21 19:49 | Outpatient (CLI) | payer BC ==
--- NOTE | 2024-12-25 18:07 | P.PCN ---
Description of Procedure: CLINICAL: Titration with positive air pressure has been done for correction of respiratory abnormalities during sleep. DESCRIPTION OF PROCEDURE: The standard montage for clinical polysomnography included the electroencephalogram, the electrocardiogram, the mentalis surface electromyography and Lead II cardiography. The respiratory battery consisted of measurements of nasal /buccal air flow, pressure transducer measurements from the nose, thoracic and /or abdominal effort and intercostal surface electromyography. Video monitoring has been done to check for any parasomnia events. Nocturnal oxyhemoglobin saturations were obtained by finger oximetry. Step-forrest titration with positive airway pressure was utilized to control respiratory events. Raw data of sleep recording has been reviewed and is adequate. RESULTS: Sleep efficiency was decreased slightly to 82.5%. Latency to sleep onset was prolonged to 58.5 minutes.]. Sleep architecture showed stage N1 was normal 6.8%, Delta sleep was absent 0%, REM sleep was not high range 31.3%. Heart rate was minimum 76 BPM, maximum 89 BPM, average 82 BPM. EMG showed 77.4 periodic limb movements per hour. PAP titration have been done with CPAP up to the pressure 14 cm H2O. Patient had problems with CPAP, switched to BPAP. BPAP titrated up to 20/16 cm H2O. The best results were at the pressure 20/16 cm H2O. Apnea hypopnea index reduced to 6.6. IMPRESSION: 1. Extremely severe obstructive sleep apnea hypopnea syndrome apnea hypopnea index during polysomnogram 106.7 mostly on controle with BPAP treatment. 2. Severe periodic limb movements have been documented. Please see other impressions from consultation. PLAN: 1. The patient will have treatment with positive air pressure equipment with the level of pressure AutoBPAP with maximal inspiratory pressure 22 and minimal expiratory pressure 10, pressure support 4 cm H2O and should use it every night for the whole night. 2. Watching and losing weight. 3. Sleep hygiene with regular time in bed for at least 8 hours. 4. No driving if feeling any sleepiness. 5. I will see the patient for follow up visit to explain the results of the test, recommendations, check compliance with treatment and make any necessary adjustment related to mask fitting, pressure and humidification. 6. Please check iron profile including ferritin level. Low level of iron may increase risk for periodic limb movements Thank you very much for allowing me to participate in the management of your patient. Sincerely, Trenton Florez MD, PhD, FAASM Diplomat of [employer] Sleep Medicine Board of [employer] [employer] Proofer App[employer] [facility] [place] cc: Izaiah Cronin DO
== END 2024-12-22 05:10 | disposition home or self-care (01) ==
LOC: 3 N SLEEP 19:49
PROVIDERS: ATTEND Internal Medicine
DX: G47.33 Obstructive sleep apnea (adult) (pediatric) (principal); G47.61 Periodic limb movement disorder; Z99.89 Dependence on other enabling machines and devices; Z87.891 Personal history of nicotine dependence
CPT/HCPCS: 95811